=== PATIENT | female | born 1945 | race Caucasian/White ===

== ENCOUNTER 2017-12-02 13:12 | Outpatient (CLI) | payer MEDICARE ==
--- NOTE | 2017-12-02 13:43 | RAD ---
PA AND LATERAL CHEST RADIOGRAPH: Date: 12-02-17 History: Dyspnea. Comparison: 06-13-11 FINDINGS: Cardiac silhouette and pulmonary vasculature are within normal limits. There are linear densities see n at the left lung base which may be related to mild scarring or atelectasis. There are mild chronic lung changes throughout the lungs with suggestion of hyperlucency within the upper lung zones which c ould be attributable to emphysematous changes. No consolidation or pleural fluid is seen. Vascular ca lcification is seen in the thoracic aorta. There is osteopenia. There has been no significant interva l change from the prior exam. IMPRESSION: Mild chronic lung changes without evidence of an acute cardiopulmonary process. POS: [facility]
== END 2017-12-02 13:13 | disposition home or self-care (01) ==
LOC: RAD 13:12
PROVIDERS: ATTEND Internal Medicine Pulmonary Disease
DX: R06.00 Dyspnea, unspecified (principal)
CPT/HCPCS: 71046

== ENCOUNTER 2018-05-27 13:50 | Outpatient (CLI) | payer MEDICARE ==
--- NOTE | 2018-05-27 15:49 | MRI ---
MRI BRAIN WITH AND WITHOUT CONTRAST: INDICATIONS: History of pituitary tumor, with no evidence of pituitary mass detected on that exam. COMPARISON: MRI brain dated 06/01/2007. TECHNIQUE: Multiplanar, multisequential imaging of the brain obtained. Pituitary protocol was performed with po st contrast images obtained after the administration of 11 mL of MultiHance. Dynamic images through the pituitary were performed in both coronal and sagittal planes. FINDINGS: The ventricles have normal size and position. Moderately severe chronic ischemic white matter change s are seen on FLAIR sequence. 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 The chronic ischemic white matter changes have progressed since the 2008 exam. There is no evidence of restricted diffusion. There is no evidence of acute infarct, mass, or edema. Images through the pituitary show a homogeneous pituitary gland. The pituitary does not appear signi ficantly changed in appearance or size when compared to 2008. No abnormal enhancement. IMPRESSION: Moderate chronic ischemic white matter change, and evidence of old lacunar infarct in the left centru m semiovale region. No evidence of acute process. No pituitary mass identified. Pituitary appear s table when compared to the MRI from 2008. POS: [facility]
[2018-05-27] MEDS ORDERED: Gadobenate Dimeglumine 529 MG/1 ML (20ML VIAL) ONE (16:30)
== END 2018-05-27 13:51 | disposition home or self-care (01) ==
LOC: BICMRI 13:50
PROVIDERS: ATTEND Family Medicine
DX: D49.7 Neoplasm of unspecified behavior of endocrine glands and other parts of nervous system (principal); Z86.73 Personal history of transient ischemic attack (TIA), and cerebral infarction without residual deficits
CPT/HCPCS: 70553; 82565

== ENCOUNTER 2018-07-15 12:49 | Outpatient (CLI) | payer MEDICARE ==
--- NOTE | 2018-07-22 09:06 | MMO ---
Bilateral MAMMO Bilat Screen [facility]. CLINICAL HISTORY: Patient is 73 years old and is seen for screening. The patient has no family history of breast cancer. The patient has a history of bladder cancer. The patient has a history of left Excisional Biopsy - benign. VIEWS: The views performed were: bilateral craniocaudal with tomosynthesis and bilateral mediolateral oblique with tomosynthesis. FILMS COMPARED: The present examination has been compared to prior imaging studies performed at [facility] on 11/27/2010, 01/16/2014 and 02/13/2015. MAMMOGRAM FINDINGS: There are scattered fibroglandular densities. There are stable post-operative changes in the left breast. There are no suspicious masses, suspicious calcifications, or new areas of architectural distortion. IMPRESSION: THERE IS NO MAMMOGRAPHIC EVIDENCE OF MALIGNANCY. A ROUTINE FOLLOW-UP MAMMOGRAM IN 1 YEAR IS RECOMMENDED. THE RESULTS OF THIS EXAM WERE SENT TO THE PATIENT. ACR BI-RADS Category 2 - Benign finding MAMMOGRAPHY NOTE: 1. A negative mammogram report should not delay a biopsy if a dominant of clinically suspicious mass is present. 2. Approximately 10% to 15% of breast cancers are not detected by mammography. 3. Adenosis and dense breasts may obscure an underlying neoplasm.
== END 2018-07-15 12:50 | disposition home or self-care (01) ==
LOC: BICMAMMO 12:49
PROVIDERS: ATTEND Family Medicine
DX: Z12.31 Encounter for screening mammogram for malignant neoplasm of breast (principal); Z85.51 Personal history of malignant neoplasm of bladder
CPT/HCPCS: 77063; 77067

== ENCOUNTER 2024-04-03 12:22 | Inpatient (IN) | payer MEDICARE ==
[2024-04-03 13:21] LABS: #Basophils 0.04 10x3/uL (0.0-0.2); #Eosinophils Less than 0.03 10x3/uL (0.0-0.7); %Basophils 0.4 % (0.0-1.0); %Eosinophils 0.2 % (0.0-10.0); %Lymphocytes 12.4 % (21.0-51.0); %Monocytes 3.6 % (0.0-10.0); %Neutrophils 82.9 % (42.0-75.0); Hematocrit 43.7 % (36.0-47.0); Hemoglobin 14.3 g/dL (12.0-16.0); Mean Corpuscular HGB CONC 32.7 g/dL (32.0-36.0); Mean Corpuscular Hemoglobin 27.2 pg (27.0-31.0); Mean Corpuscular Volume 83.1 fL (78.0-98.0); Mean Platelet Volume 10.9 fL (7.4-10.4); Platelet Count 291 10x3/uL (130-400); RBC Distribution Width 14.6 % (11.5-14.5); Red Blood Cell (RBC) Count 5.26 mill/uL (4.20-5.40)
[2024-04-03 13:37] LABS: ALT (SGPT) 21 U/L (8-55); AST (SGOT) 29 U/L (5-34); Albumin 3.8 g/dL (3.4-4.8); Alkaline Phosphatase 98 U/L (40-110); Anion Gap 17 mmol/L (10-20); BUN (Urea Nitrogen) 12 mg/dL (9.8-20.1); Bilirubin, Total 0.3 mg/dL (0.2-1.2); Calc. Creatinine Clearance 0 mL/min (70-130); Calcium 9.1 mg/dL (7.8-10.44); Carbon Dioxide 27 mmol/L (23-31); Chloride 101 mmol/L (98-107); Estimated GFR 87; Globulin 4.4 g/dL (2.4-3.5); Glucose 166 mg/dL (83-110); Potassium 3.3 mmol/L (3.5-5.1); Protein, Total 8.2 g/dL (5.8-8.1); Sodium 142 mmol/L (136-145)
[2024-04-03 13:42] LABS: Troponin I Less than 0.010 ng/mL (< 0.028)
[2024-04-03 13:55] LABS: Actual Bicarbonate (HCO3v) 25.9 mEq/L (22-28); Analyzer IN Cardio ER; Base Excess 0.3 mEq/L (-2.0 to +3.0); Calcium, Ionized (venous) 1.13 mmol/L (1.16-1.32); Chloride (VBG) 102 mmol/L (98-106); Hematocrit-VBG 42 % (36.0-47.0); Hemoglobin (Hb) 14.4 g/dL (11.7-16.1); Potassium (VBG) 3.28 mmol/L (3.70-5.30); Sodium 142 mmol/L (133-146); pH (venous) 7.372 (7.32-7.43)
[2024-04-03] MEDS ORDERED: Bisacodyl 5 MG TAB PO PRN (14:28)
[2024-04-03] MEDS ORDERED: Insulin Lispro 100 UNIT/ML 10 ML VIAL SC PRN (14:28)
[2024-04-03] MEDS ORDERED: Ipratropium/Albuterol 3 ML NEB NEB PRN (14:28)
[2024-04-03] MEDS ORDERED: Glucagon 1 MG/ML KIT IM PRN (14:28)
[2024-04-03] MEDS ORDERED: Dextrose 50% Abboject 50 ML SYRINGE SLOW IVP PRN (14:28)
[2024-04-03] MEDS ORDERED: Ondansetron PF 4 MG/2 ML Vial IVP PRN (14:28)
[2024-04-03] MEDS ORDERED: Dextrose 5% in Water 1,000 ML IV PRN (14:28)
[2024-04-03] MEDS ORDERED: Electrolyte Replacement Protocol 1 EACH FS SCH (14:41)
[2024-04-03] MEDS: Ipratropium/Albuterol 3 ML NEB NEB SCH (15:36)
[2024-04-03] MEDS ORDERED: Morphine 2 MG/ML VIAL SLOW IVP PRN (15:54)
[2024-04-03] MEDS ORDERED: Potassium Chloride 20 MEQ TAB PO SCH (16:00)
[2024-04-03] MEDS: cefTRIAXone\\ROCEPHIN 1 GM in Sodium Chloride 0.9% 100 ML IVPB SCH (16:14)
[2024-04-03] MEDS: Azithromycin 500 MG in Sodium Chloride 0.9% 250 ML 250 ML IVPB SCH (17:24)
[2024-04-03] MEDS: Potassium Chloride 20 MEQ in Premix 1 BAG IVPB SCH (17:31)
[2024-04-03 17:56] VITALS: BMI 21.4
[2024-04-03] MEDS: methylPREDNISolone Sod Succ 40 MG VIAL IVP SCH (18:50)
[2024-04-03] MEDS ORDERED: Ipratropium/Albuterol 3 ML NEB NEB SCH (19:00)
[2024-04-03] MEDS: Dexmedetomidine In 0.9 % NaCl 100 ML IVPB SCH (20:08)
[2024-04-03] MEDS: Potassium Chloride 20 MEQ TAB PO SCH (22:20)
[2024-04-04] MEDS ORDERED: Albuterol 200 PUFF (6.7GM INHALER) INH PRN (01:43)
[2024-04-04 03:14] LABS: Hematocrit 40.2 % (36.0-47.0); Hemoglobin 13.1 g/dL (12.0-16.0); Mean Corpuscular HGB CONC 32.6 g/dL (32.0-36.0); Mean Corpuscular Hemoglobin 27.3 pg (27.0-31.0); Mean Corpuscular Volume 83.9 fL (78.0-98.0); Mean Platelet Volume 10.7 fL (7.4-10.4); Platelet Count 248 10x3/uL (130-400); RBC Distribution Width 14.6 % (11.5-14.5); Red Blood Cell (RBC) Count 4.79 mill/uL (4.20-5.40)
[2024-04-04 03:25] LABS: Anion Gap 16 mmol/L (10-20); BUN (Urea Nitrogen) 17 mg/dL (9.8-20.1); Calc. Creatinine Clearance 63 mL/min (70-130); Calcium 8.6 mg/dL (7.8-10.44); Carbon Dioxide 23 mmol/L (23-31); Chloride 107 mmol/L (98-107); Estimated GFR 89; Glucose 158 mg/dL (83-110); Potassium 4.4 mmol/L (3.5-5.1); Sodium 142 mmol/L (136-145)
[2024-04-04 04:34] LABS: Anisocytosis SLIGHT = 6-15 cells HPF (0-5); Band 4 % (5-11); Large Platelets 4.1 % (0-5); Lymphocytes 11 % (21-51); Monocytes 1 % (0-10); Neutrophil 83 % (42-75); Platelet Adequacy Comment Platelets Normal; Polychromasia SLIGHT = 2-3 cells HPF (0-2); Smudge Cells 11.2 %
[2024-04-04] MEDS: Mometasone 200 MCG/Formoterol 5 MCG 120 PUFF INHALER INH SCH (07:07)
[2024-04-04] MEDS: Ipratropium Bromide 2.5 ml Neb NEB SCH (07:21)
[2024-04-04] MEDS: Enoxaparin 40 MG (0.4 mL) SYRINGE SC SCH (07:55)
[2024-04-04] MEDS: Ipratropium/Albuterol 3 ML NEB NEB SCH (10:47)
[2024-04-04] MEDS: Budesonide 0.5 MG/2 ML NEB INH SCH (10:48)
[2024-04-04] MEDS: Magnesium 2 GM/50 ML(in water) 2 GM in Premix 1 BAG IVPB SCH (11:02)
[2024-04-04] MEDS: Pantoprazole 40 MG DR.TAB PO SCH (16:53)
[2024-04-05] MEDS: Levothyroxine Sodium 75 MCG TAB PO SCH (05:57)
[2024-04-05] MEDS: Pantoprazole 40 MG DR.TAB PO SCH (08:28)
[2024-04-05] MEDS: Dextrose 5%-Lactated Ringers 1,000 ML IV SCH (17:48)
[2024-04-05] MEDS: Arformoterol 15 MCG/2 ML NEB NEB SCH (18:38)
[2024-04-05 18:42] LABS: Actual Bicarbonate (HCO3v) 31.6 mEq/L (22-28); Base Excess 2.3 mEq/L (-2.0 to +3.0); Calcium, Ionized (venous) 1.14 mmol/L (1.16-1.32); Chloride (VBG) 104 mmol/L (98-106); Hematocrit-VBG 39 % (36.0-47.0); Hemoglobin (Hb) 13.3 g/dL (11.7-16.1); Potassium (VBG) 4.93 mmol/L (3.70-5.30); Sodium 145 mmol/L (133-146); pH (venous) 7.251 (7.32-7.43)
[2024-04-05] MEDS: methylPREDNISolone Sod Succ 40 MG VIAL IVP SCH (21:01)
[2024-04-06] MEDS: Pantoprazole 40 MG VIAL IVP SCH (09:47)
[2024-04-06] MEDS: methylPREDNISolone Sod Succ 40 MG VIAL IVP SCH (20:28)
[2024-04-06] MEDS: Morphine 2 MG/ML VIAL SLOW IVP PRN (20:36)
[2024-04-07 05:44] LABS: #Basophils Less than 0.03 10x3/uL (0.0-0.2); #Eosinophils Less than 0.03 10x3/uL (0.0-0.7); %Basophils 0.1 % (0.0-1.0); %Lymphocytes 2.4 % (21.0-51.0); %Monocytes 4.4 % (0.0-10.0); %Neutrophils 92.5 % (42.0-75.0); Hematocrit 38.9 % (36.0-47.0); Hemoglobin 12.2 g/dL (12.0-16.0); Mean Corpuscular HGB CONC 31.4 g/dL (32.0-36.0); Mean Corpuscular Hemoglobin 27.8 pg (27.0-31.0); Mean Corpuscular Volume 88.6 fL (78.0-98.0); Mean Platelet Volume 10.7 fL (7.4-10.4); Platelet Count 241 10x3/uL (130-400); RBC Distribution Width 14.9 % (11.5-14.5); Red Blood Cell (RBC) Count 4.39 mill/uL (4.20-5.40)
[2024-04-07 06:01] LABS: Anion Gap 12 mmol/L (10-20); BUN (Urea Nitrogen) 29 mg/dL (9.8-20.1); Calc. Creatinine Clearance 72 mL/min (70-130); Calcium 8.5 mg/dL (7.8-10.44); Carbon Dioxide 31 mmol/L (23-31); Chloride 105 mmol/L (98-107); Estimated GFR 93; Glucose 154 mg/dL (83-110); Potassium 4.5 mmol/L (3.5-5.1); Sodium 143 mmol/L (136-145)
[2024-04-07] MEDS: Ipratropium/Albuterol 3 ML NEB NEB PRN (11:57)
[2024-04-07] MEDS: Magnesium 2 GM/50 ML(in water) 2 GM in Premix 1 BAG IVPB SCH (14:47)
[2024-04-07 17:53] LABS: Actual Bicarbonate (HCO3v) 25.2 mEq/L (22-28); Calcium, Ionized (venous) 0.94 mmol/L (1.16-1.32); Chloride (VBG) 104 mmol/L (98-106); Hematocrit-VBG 44 % (36.0-47.0); Hemoglobin (Hb) 15.1 g/dL (11.7-16.1); Potassium (VBG) 4.87 mmol/L (3.70-5.30); Sodium 142 mmol/L (133-146); pH (venous) 7.387 (7.32-7.43)
[2024-04-08] MEDS: Bisacodyl 10 MG SUPP PR PRN (05:28)
[2024-04-08] MEDS ORDERED: Lorazepam 0.5 MG TAB PO PRN (08:14)
[2024-04-08] MEDS: Levothyroxine 100 MCG SDV IVP SCH (15:35)
[2024-04-08] MEDS: Levothyroxine Sodium 200 MCG VIAL IVP SCH (15:36)
[2024-04-08] MEDS: Lorazepam 2 MG/ML VIAL SLOW IVP SCH (22:31)
[2024-04-09 03:49] LABS: Magnesium 2.6 mg/dL (1.6-2.6)
[2024-04-09] MEDS: Levothyroxine 100 MCG SDV IVP SCH (06:52)
[2024-04-09 15:06] LABS: Actual Bicarbonate (HCO3a) 31.8 mEq/L (22-28); Base Excess (BEa) 3.7 mEq/L (-2.0 to +3.0); Calcium, Ionized (arterial) 1.19 mmol/L (1.12-1.30); Carboxyhemoglobin (COHb) 0.9 gm% (0.0-3.0); Hematocrit-ABG 39 % (36.0-47.0); Hemoglobin (Hb) 13.4 g/dL (12.0-16.0); Potassium - ABG Lab 4.26 mmol/L (3.70-5.30)
[2024-04-09 15:10] LABS: CO2 Tension 64.6 mmHg (35.0-45.0); O2 Tension (PaO2), arterial 52.5 mmHg (> 60.0); Puncture Site Right Radial artery
[2024-04-09] MEDS: QUEtiapine 25 MG TAB PO SCH (21:00)
[2024-04-09 22:27] LABS: Actual Bicarbonate (HCO3a) 33.5 mEq/L (22-28); Base Excess (BEa) 6.3 mEq/L (-2.0 to +3.0); Calcium, Ionized (arterial) 1.21 mmol/L (1.12-1.30); Carboxyhemoglobin (COHb) 0.9 gm% (0.0-3.0); Hematocrit-ABG 39 % (36.0-47.0); Hemoglobin (Hb) 13.1 g/dL (12.0-16.0); O2 Tension (PaO2), arterial 77.6 mmHg (> 60.0); Potassium - ABG Lab 3.78 mmol/L (3.70-5.30); pH, Arterial 7.362 (7.35-7.45)
[2024-04-09 22:28] LABS: CO2 Tension 60.4 mmHg (35.0-45.0)
[2024-04-09 22:30] LABS: Puncture Site Right Brachial art
[2024-04-10 06:33] LABS: #Basophils 0.06 10x3/uL (0.0-0.2); %Basophils 0.3 % (0.0-1.0); %Eosinophils 0.8 % (0.0-10.0); %Lymphocytes 3.7 % (21.0-51.0); %Monocytes 6.3 % (0.0-10.0); %Neutrophils 87.7 % (42.0-75.0); Hematocrit 37.7 % (36.0-47.0); Hemoglobin 11.6 g/dL (12.0-16.0); Mean Corpuscular HGB CONC 30.8 g/dL (32.0-36.0); Mean Corpuscular Hemoglobin 27.1 pg (27.0-31.0); Mean Corpuscular Volume 88.1 fL (78.0-98.0); Mean Platelet Volume 11.1 fL (7.4-10.4); Platelet Count 152 10x3/uL (130-400); RBC Distribution Width 15.3 % (11.5-14.5); Red Blood Cell (RBC) Count 4.28 mill/uL (4.20-5.40)
[2024-04-10 06:46] LABS: Anion Gap 16 mmol/L (10-20); BUN (Urea Nitrogen) 25 mg/dL (9.8-20.1); Calc. Creatinine Clearance 65 mL/min (70-130); Calcium 8.3 mg/dL (7.8-10.44); Carbon Dioxide 28 mmol/L (23-31); Chloride 108 mmol/L (98-107); Estimated GFR 91; Glucose 145 mg/dL (83-110); Potassium 3.8 mmol/L (3.5-5.1); Sodium 148 mmol/L (136-145)
[2024-04-10] MEDS ORDERED: Electrolyte Replacement Protocol FS PRN (08:00)
[2024-04-10] MEDS: OLANZapine 10 MG VIAL IM SCH (08:51)
[2024-04-10] MEDS: Sterile Water 10 ML VIAL FS SCH (08:51)
[2024-04-10] MEDS: methylPREDNISolone Sod Succ 40 MG VIAL IVP SCH (09:06)
[2024-04-10] MEDS: Dextrose 5% in Water 1,000 ML IV SCH (09:06)
[2024-04-10] MEDS: Sodium Chloride 0.9% 100 ML ONE (15:04)
[2024-04-11 09:41] LABS: #Basophils 0.03 10x3/uL (0.0-0.2); %Basophils 0.2 % (0.0-1.0); %Eosinophils 2.1 % (0.0-10.0); %Lymphocytes 4.3 % (21.0-51.0); %Monocytes 4.5 % (0.0-10.0); %Neutrophils 87.7 % (42.0-75.0); Hematocrit 36.6 % (36.0-47.0); Hemoglobin 11.3 g/dL (12.0-16.0); Mean Corpuscular HGB CONC 30.9 g/dL (32.0-36.0); Mean Corpuscular Hemoglobin 27.4 pg (27.0-31.0); Mean Corpuscular Volume 88.6 fL (78.0-98.0); Mean Platelet Volume 11.6 fL (7.4-10.4); Platelet Count 172 10x3/uL (130-400); RBC Distribution Width 14.9 % (11.5-14.5); Red Blood Cell (RBC) Count 4.13 mill/uL (4.20-5.40)
[2024-04-11 10:02] LABS: Anion Gap 13 mmol/L (10-20); BUN (Urea Nitrogen) 20 mg/dL (9.8-20.1); Calc. Creatinine Clearance 74 mL/min (70-130); Calcium 8.5 mg/dL (7.8-10.44); Carbon Dioxide 36 mmol/L (23-31); Chloride 105 mmol/L (98-107); Estimated GFR 93; Glucose 138 mg/dL (83-110); Magnesium 2.2 mg/dL (1.6-2.6); Potassium 3.6 mmol/L (3.5-5.1); Sodium 150 mmol/L (136-145)
[2024-04-11 10:16] LABS: Phosphorus 1.4 mg/dL (2.3-4.7)
[2024-04-11] MEDS: Potassium Phosphate 30 MMOL in Sodium Chloride 0.9% 250 ML 250 ML IVPB SCH (11:28)
[2024-04-11] MEDS: Dextrose 5% in Water 1,000 ML IV SCH (11:35)
[2024-04-11] MEDS: Lactated Ringer's 1,000 ML IV SCH (12:25)
[2024-04-11 20:01] LABS: Anion Gap 13 mmol/L (10-20); BUN (Urea Nitrogen) 20 mg/dL (9.8-20.1); Calc. Creatinine Clearance 74 mL/min (70-130); Calcium 8.1 mg/dL (7.8-10.44); Carbon Dioxide 33 mmol/L (23-31); Chloride 104 mmol/L (98-107); Estimated GFR 93; Glucose 186 mg/dL (83-110); Phosphorus 3.5 mg/dL (2.3-4.7); Potassium 4.4 mmol/L (3.5-5.1); Sodium 146 mmol/L (136-145)
[2024-04-11] MEDS: Ascorbic Acid 500 mg Chewable Tablet PO SCH (20:40)
[2024-04-11] MEDS: Cyanocobalamin (Vitamin B-12) 1,000 MCG TAB PO SCH (20:40)
[2024-04-11] MEDS: Folic Acid 1 MG TAB PO SCH (20:40)
[2024-04-11] MEDS: Senokot S 8.6-50 MG TAB PO SCH (20:40)
[2024-04-11] MEDS: Multivit, Therapeutic 1 TAB PO SCH (21:04)
[2024-04-11] MEDS: Cholecalciferol 1,000 UNITS (25 MCG) TAB PO SCH (21:04)
[2024-04-12 04:31] LABS: #Basophils Less than 0.03 10x3/uL (0.0-0.2); %Basophils 0.1 % (0.0-1.0); %Lymphocytes 6.3 % (21.0-51.0); %Monocytes 5.8 % (0.0-10.0); %Neutrophils 85.5 % (42.0-75.0)
[2024-04-12 04:32] LABS: Hematocrit 28.8 % (36.0-47.0); Hemoglobin 9.1 g/dL (12.0-16.0); Mean Corpuscular HGB CONC 31.6 g/dL (32.0-36.0); Mean Corpuscular Hemoglobin 27.7 pg (27.0-31.0); Mean Corpuscular Volume 87.5 fL (78.0-98.0); Platelet Count 138 10x3/uL (130-400); RBC Distribution Width 15.2 % (11.5-14.5); Red Blood Cell (RBC) Count 3.29 mill/uL (4.20-5.40)
[2024-04-12 06:14] LABS: Anion Gap 8 mmol/L (10-20); BUN (Urea Nitrogen) 16 mg/dL (9.8-20.1); Calc. Creatinine Clearance 82 mL/min (70-130); Calcium 8.2 mg/dL (7.8-10.44); Carbon Dioxide 37 mmol/L (23-31); Chloride 103 mmol/L (98-107); Estimated GFR 96; Glucose 160 mg/dL (83-110); Potassium 3.7 mmol/L (3.5-5.1); Sodium 144 mmol/L (136-145)
[2024-04-12 06:16] LABS: Phosphorus 1.8 mg/dL (2.3-4.7)
[2024-04-12] MEDS ORDERED: PHOS-NAK 1 PKT PACK PO SCH (08:00)
[2024-04-12] MEDS: Potassium Phosphate 15 MMOL in Sodium Chloride 0.9% 100 ML IVPB SCH (09:08)
[2024-04-12] MEDS: Magnesium 2 GM/50 ML(in water) 2 GM in Premix 1 BAG IVPB SCH (09:08)
[2024-04-12] MEDS: Dextrose 5% in Water 1,000 ML IV SCH (09:08)
[2024-04-12] MEDS: acetaZOLAMIDE Sodium 500 mg Vial IVP SCH (09:24)
[2024-04-12] MEDS: K-Phos Neutral 250 MG TAB PO SCH (13:01)
[2024-04-12] MEDS: QUEtiapine 25 MG TAB PO SCH (21:09)
[2024-04-13 04:24] LABS: #Basophils Less than 0.03 10x3/uL (0.0-0.2); %Basophils 0.2 % (0.0-1.0); %Monocytes 6.8 % (0.0-10.0); %Neutrophils 82.8 % (42.0-75.0); Hematocrit 30.5 % (36.0-47.0); Hemoglobin 9.5 g/dL (12.0-16.0); Mean Corpuscular HGB CONC 31.1 g/dL (32.0-36.0); Mean Corpuscular Hemoglobin 27.3 pg (27.0-31.0); Mean Corpuscular Volume 87.6 fL (78.0-98.0); Mean Platelet Volume 12.1 fL (7.4-10.4); Platelet Count 169 10x3/uL (130-400); Red Blood Cell (RBC) Count 3.48 mill/uL (4.20-5.40)
[2024-04-13 04:45] LABS: Anion Gap 8 mmol/L (10-20); BUN (Urea Nitrogen) 13 mg/dL (9.8-20.1); Calc. Creatinine Clearance 78 mL/min (70-130); Calcium 8.1 mg/dL (7.8-10.44); Carbon Dioxide 31 mmol/L (23-31); Chloride 107 mmol/L (98-107); Estimated GFR 94; Glucose 136 mg/dL (83-110); Magnesium 2.6 mg/dL (1.6-2.6); Phosphorus 2.2 mg/dL (2.3-4.7); Potassium 3.8 mmol/L (3.5-5.1); Sodium 142 mmol/L (136-145)
[2024-04-13] MEDS: Sterile Water 10 ML ONE (07:58)
[2024-04-13] MEDS ORDERED: Albuterol 200 PUFF INH INH PRN (08:59)
[2024-04-13] MEDS: QUEtiapine 25 MG TAB PO SCH (09:02)
[2024-04-13] MEDS: Potassium Phosphate 15 MMOL in Sodium Chloride 0.9% 100 ML IVPB SCH (10:11)
[2024-04-13] MEDS: PHOS-NAK 1 PKT PACK PO SCH (10:11)
[2024-04-13] MEDS ORDERED: Aluminum & Magnesium Hydroxide 60 ML, diphenhydrAMINE 150 MG, Lidocaine 2% Viscous Solu... SSW PRN (13:29)
[2024-04-13] MEDS: MAGIC MOUTH WASH W/NYSTATIN SUSP 10 ML UDCUP SSW PRN (15:52)
[2024-04-14 04:17] LABS: #Basophils 0.03 10x3/uL (0.0-0.2); %Basophils 0.3 % (0.0-1.0); %Eosinophils 2.4 % (0.0-10.0); %Lymphocytes 6.6 % (21.0-51.0); %Monocytes 7.1 % (0.0-10.0); %Neutrophils 81.2 % (42.0-75.0); Hemoglobin 9.1 g/dL (12.0-16.0); Mean Corpuscular HGB CONC 31.4 g/dL (32.0-36.0); Mean Corpuscular Hemoglobin 27.1 pg (27.0-31.0); Mean Corpuscular Volume 86.3 fL (78.0-98.0); Mean Platelet Volume 11.8 fL (7.4-10.4); Platelet Count 153 10x3/uL (130-400); RBC Distribution Width 14.8 % (11.5-14.5); Red Blood Cell (RBC) Count 3.36 mill/uL (4.20-5.40)
[2024-04-14 04:35] LABS: Calc. Creatinine Clearance 85 mL/min (70-130); Estimated GFR 97
[2024-04-14 04:37] LABS: ALT (SGPT) 33 U/L (8-55); AST (SGOT) 16 U/L (5-34); Albumin 2.5 g/dL (3.4-4.8); Alkaline Phosphatase 76 U/L (40-110); Anion Gap 8 mmol/L (10-20); BUN (Urea Nitrogen) 11 mg/dL (9.8-20.1); Bilirubin, Total 0.6 mg/dL (0.2-1.2); Calcium 8.1 mg/dL (7.8-10.44); Carbon Dioxide 31 mmol/L (23-31); Chloride 105 mmol/L (98-107); Glucose 131 mg/dL (83-110); Phosphorus 2.4 mg/dL (2.3-4.7); Potassium 3.6 mmol/L (3.5-5.1); Protein, Total 5.5 g/dL (5.8-8.1); Sodium 140 mmol/L (136-145)
[2024-04-14] MEDS: Sterile Water 10 ML VIAL IVP SCH (09:28)
[2024-04-14 12:37] VITALS: BMI 21.1
[2024-04-14] MEDS: Morphine IR Tab 15 MG TAB PO PRN (16:22)
[2024-04-14] MEDS: Acetaminophen 325 MG TAB PO PRN (21:08)
[2024-04-15 02:22] LABS: #Basophils 0.05 10x3/uL (0.0-0.2); %Basophils 0.4 % (0.0-1.0); %Eosinophils 1.1 % (0.0-10.0); %Lymphocytes 6.1 % (21.0-51.0); %Monocytes 7.9 % (0.0-10.0); %Neutrophils 81.9 % (42.0-75.0); Hematocrit 30.1 % (36.0-47.0); Hemoglobin 9.4 g/dL (12.0-16.0); Mean Corpuscular HGB CONC 31.2 g/dL (32.0-36.0); Mean Corpuscular Hemoglobin 27.2 pg (27.0-31.0); Platelet Count 173 10x3/uL (130-400); RBC Distribution Width 15.1 % (11.5-14.5); Red Blood Cell (RBC) Count 3.46 mill/uL (4.20-5.40)
[2024-04-15 02:43] LABS: ALT (SGPT) 34 U/L (8-55); AST (SGOT) 23 U/L (5-34); Albumin 2.6 g/dL (3.4-4.8); Alkaline Phosphatase 78 U/L (40-110); Anion Gap 9 mmol/L (10-20); BUN (Urea Nitrogen) 12 mg/dL (9.8-20.1); Bilirubin, Total 0.7 mg/dL (0.2-1.2); Calc. Creatinine Clearance 79 mL/min (70-130); Calcium 8.7 mg/dL (7.8-10.44); Carbon Dioxide 28 mmol/L (23-31); Chloride 105 mmol/L (98-107); Estimated GFR 95; Globulin 3.3 g/dL (2.4-3.5); Glucose 133 mg/dL (83-110); Potassium 3.5 mmol/L (3.5-5.1); Protein, Total 5.9 g/dL (5.8-8.1); Sodium 138 mmol/L (136-145)
[2024-04-15] MEDS: predniSONE 20 MG TAB PO SCH (09:18)
[2024-04-15] MEDS: Potassium Chloride 20 MEQ TAB PO SCH (09:18)
[2024-04-15] MEDS: AcetaZOLAMIDE 250 MG TAB PO SCH (09:19)
[2024-04-16 04:42] LABS: #Basophils 0.03 10x3/uL (0.0-0.2); %Basophils 0.2 % (0.0-1.0); %Eosinophils 1.2 % (0.0-10.0); %Lymphocytes 9.3 % (21.0-51.0); %Monocytes 10.4 % (0.0-10.0); %Neutrophils 75.9 % (42.0-75.0); Hematocrit 30.7 % (36.0-47.0); Hemoglobin 9.5 g/dL (12.0-16.0); Mean Corpuscular HGB CONC 30.9 g/dL (32.0-36.0); Mean Corpuscular Hemoglobin 26.9 pg (27.0-31.0); Platelet Count 234 10x3/uL (130-400); RBC Distribution Width 15.3 % (11.5-14.5); Red Blood Cell (RBC) Count 3.53 mill/uL (4.20-5.40)
[2024-04-16 05:34] LABS: ALT (SGPT) 32 U/L (8-55); AST (SGOT) 15 U/L (5-34); Albumin 2.8 g/dL (3.4-4.8); Alkaline Phosphatase 82 U/L (40-110); Anion Gap 10 mmol/L (10-20); BUN (Urea Nitrogen) 14 mg/dL (9.8-20.1); Bilirubin, Total 0.7 mg/dL (0.2-1.2); Calc. Creatinine Clearance 77 mL/min (70-130); Calcium 8.8 mg/dL (7.8-10.44); Carbon Dioxide 29 mmol/L (23-31); Chloride 106 mmol/L (98-107); Estimated GFR 94; Globulin 3.2 g/dL (2.4-3.5); Glucose 106 mg/dL (83-110); Potassium 3.4 mmol/L (3.5-5.1); Sodium 142 mmol/L (136-145)
[2024-04-16] MEDS: Potassium Chloride 20 MEQ TAB PO SCH (10:08)
[2024-04-16] MEDS: Pantoprazole 40 MG DR.TAB PO SCH (10:09)
[2024-04-16] MEDS: Benzonatate 100 MG CAP PO PRN (11:39)
[2024-04-16 16:20] LABS: Potassium 4.1 mmol/L (3.5-5.1)
[2024-04-16] MEDS: guaiFENesin ER 600 MG TAB PO SCH (20:31)
[2024-04-17 04:57] LABS: Potassium 4.2 mmol/L (3.5-5.1)
[2024-04-18 16:42] VITALS: TEMP 98.3
[2024-04-18 17:15] VITALS: BP 173/87
== END 2024-04-18 21:40 | disposition swing bed (61) | DRG 189 ==
LOC: EDBD 12:22 → ERS 12:22 → IMCU/EMU 14:14 → T4-B 04-15 13:45
PROVIDERS: ADMIT Internal Medicine; ATTEND Internal Medicine
PROC: 5A09457 Assistance with Respiratory Ventilation, 24-96 Consecutive Hours, Continuous Positive Airway Pressure (ICD-10-PCS; principal; 2024-04-03)
PROC: 5A0935A Assistance with Respiratory Ventilation, Less than 24 Consecutive Hours, High Flow/Velocity Cannula (ICD-10-PCS; 2024-04-05)
PROC: 4A133R1 Monitoring of Arterial Saturation, Peripheral, Percutaneous Approach (ICD-10-PCS; 2024-04-09)
DX: J96.21 Acute and chronic respiratory failure with hypoxia (principal); G93.41 Metabolic encephalopathy; J44.1 Chronic obstructive pulmonary disease with (acute) exacerbation; E87.0 Hyperosmolality and hypernatremia; E87.1 Hypo-osmolality and hyponatremia; J20.5 Acute bronchitis due to respiratory syncytial virus; Z51.5 Encounter for palliative care; E03.9 Hypothyroidism, unspecified; I10 Essential (primary) hypertension; Z88.8 Allergy status to other drugs, medicaments and biological substances; Z66 Do not resuscitate; Z87.891 Personal history of nicotine dependence; Z90.89 Acquired absence of other organs; E78.00 Pure hypercholesterolemia, unspecified; Z79.899 Other long term (current) drug therapy; Z79.4 Long term (current) use of insulin; G25.81 Restless legs syndrome; M81.0 Age-related osteoporosis without current pathological fracture; E78.5 Hyperlipidemia, unspecified; G43.909 Migraine, unspecified, not intractable, without status migrainosus; E87.6 Hypokalemia; E83.39 Other disorders of phosphorus metabolism; E11.65 Type 2 diabetes mellitus with hyperglycemia
CPT/HCPCS: 36415; 36416; 36600; 71045; 80048; 80053; 82805; 83605; 83735; 83880; 84100; 84132; 84484; 85025; 87040; 87428; 87633; 93005; 94640; 94660; 94760; J0456; J0696; J1120; J1650; J2060; J2272; J2470; J2919; J3475; J3480; J7050; J7070; J7120; J7512; J7620; J7626